=== PATIENT | male | born 1960 | race Caucasian/White ===

== ENCOUNTER 2019-03-07 03:30 | Emergency (ER) | payer OTHER, SELFPAY ==
[2019-03-07 03:32] VITALS: BP 151/100; PULSE 69; RESP 16; TEMP 36.4; O2SAT 100; BMI 23.1
--- NOTE | 2019-03-07 03:40 | ED.CHESTPAIN ---
HPI - Chest Pain <Rand Escalona DO - Last Filed: 03/08/19 00:12> General Chief Complaint: Chest Pain Stated Complaint: States bout of Pericarditis Time Seen by Provider: 03/07/19 03:39 Source: patient Mode of arrival: ambulatory Limitations: no limitations History of Present Illness HPI narrative: Patient is a 58-year-old male with history of pericarditis presenting with chest pain. He states he got up this evening and then started noticing that he was having symptoms of his pericarditis which include chest pain and belching. He has had attacks of this multiple times in the past he has had workups including a stress test but in 2007. He says this feels exactly the same as it usually does. He typically caries ibuprofen with him however he could not find any so he came to the emergency department. It seems to be worse every time he takes a deep breath. Positioning is the same whether he is sitting up and leaning forward or lying down he says it is quite painful either way. Eaten denies any shortness of breath with exertion. He denies any nausea or diaphoresis. MD complaint: chest pain Onset (ago): minute(s) Duration: constant Onset: during rest Pain location: substernal Severity: severe Quality: sharp Pain radiation: none Exacerbating factors: inspiration and movement Related Data Previous Rx's Medication Instructions Recorded ketorolac 10 mg PO Q6H PRN #14 tab 03/07/19 Allergies Allergy/AdvReac Type Severity Reaction Status Date / Time No Known Drug Allergies Allergy Verified 03/07/19 04:05 Review of Systems <DO Jaswinder Sahni Last Filed: 03/08/19 00:12> Review of Systems GENERAL: Denies chills, fatigue, malaise, fever, sweats, travel HEENT: Denies sinus pain, ear pain, sore throat, difficulty swallowing, neck pain RESPIRATORY: Denies dyspnea, cough, wheezing, hemoptysis, sputum. CARDIOVASCULAR: See HPI GASTROINTESTINAL: Denies nausea, vomiting, abdominal pain, diarrhea, constipation, melena. : Denies dysuria, frequency, incontinence, hematuria, urinary retention, flank pain. MUSCULOSKELETAL: Denies weakness, joint pain, or bony pain SKIN: No rash, no erythema, no pruritus NEUROLOGIC: Denies weakness, dizziness, headache, numbness, change in speech, confusion PSYCHIATRIC: No concerning psychosocial issues. 12 point review of systems is negative except for those stated above and HPI PFSH <Rand Escalona DO - Last Filed: 03/08/19 00:12> Medical History Pericarditis (Acute) Social History Smoking Status: Never smoker Social History Smoking Status: Never smoker Exam <Rand Escalona DO - Last Filed: 03/08/19 00:12> Initial Vital Signs Initial Vital Signs: Vital Signs Temperature 97.5 F L 03/07/19 03:32 Pulse Rate 69 03/07/19 03:32 Respiratory Rate 16 03/07/19 03:32 Blood Pressure 151/100 H 03/07/19 03:32 Pulse Oximetry 100 03/07/19 03:32 GENERAL: Middle-aged male appears in pain and uncomfortable HEENT: Head atraumatic,EOMI, pupils reactive, face symmetric, moist mucous membranes CARDIOVASCULAR: Regular rate and rhythm without murmurs, rubs or gallops. RESPIRATORY: Breath sounds equal bilaterally, no wheezes rales or rhonchi. ABDOMEN: Soft, nontender. Normoactive bowel sounds all 4 quadrants. No guarding or rebound. EXTREMITIES: Normal range of motion, no clubbing or edema. Neurovascularly intact NEUROLOGICAL: Alert and oriented x4.Normal gait and speech. Cranial nerves II through XII grossly intact. SKIN: Warm, dry, no laceration, no petechiae, no rashes or lesions. <Tomi Romano DO - Last Filed: 03/07/19 08:02> Initial Vital Signs Initial Vital Signs: Vital Signs Temperature 97.5 F L 03/07/19 03:32 Pulse Rate 69 03/07/19 03:32 Respiratory Rate 16 03/07/19 03:32 Blood Pressure 151/100 H 03/07/19 03:32 Pulse Oximetry 100 03/07/19 03:32 Scores <Rand Escalona DO - Last Filed: 03/08/19 00:12> HEART Score Heart Score history: Slightly Suspicious Heart Score EKG: Normal Heart Score Age: 45-64 years old Heart Score risk factors: No known risk factors Heart Score troponin: < or = to normal limit Heart Score Total: 1 Course <Rand Escalona DO - Last Filed: 03/08/19 00:12> Orders Ordered: Discontinued Medications Ketorolac Tromethamine (Toradol) 30 mg IV NOW ONE Stop: 03/07/19 03:56 Last Admin: 03/07/19 04:00 Dose: 30 mg Vital Signs - 8 hr 03/07/19 03:32 03/07/19 04:18 03/07/19 06:39 Temperature 97.5 F L Pulse Rate 69 62 68 Respiratory Rate 16 19 16 Blood Pressure 151/100 H Blood Pressure [Right Arm] 132/93 H 126/71 Pulse Oximetry 100 98 97 03/07/19 07:06 Temperature Pulse Rate 71 Respiratory Rate 19 Blood Pressure Blood Pressure [Right Arm] 128/75 Pulse Oximetry 97 <Tomi Romano DO - Last Filed: 03/07/19 08:02> Orders Ordered: Discontinued Medications Ketorolac Tromethamine (Toradol) 30 mg IV NOW ONE Stop: 03/07/19 03:56 Last Admin: 03/07/19 04:00 Dose: 30 mg Vital Signs - 8 hr 03/07/19 03:32 03/07/19 04:18 03/07/19 06:39 Temperature 97.5 F L Pulse Rate 69 62 68 Respiratory Rate 16 19 16 Blood Pressure 151/100 H Blood Pressure [Right Arm] 132/93 H 126/71 Pulse Oximetry 100 98 97 03/07/19 07:06 Temperature Pulse Rate 71 Respiratory Rate 19 Blood Pressure Blood Pressure [Right Arm] 128/75 Pulse Oximetry 97 MDM - Chest Pain <DO Jaswinder Sahni Last Filed: 03/08/19 00:12> Lab Data Attestation: I reviewed the patient's lab results. Result diagrams: 03/07/19 03:45 03/07/19 03:45 Lab Results 03/07/19 03/07/19 03/07/19 Range/Units 03:45 03:45 03:45 WBC 6.9 (4.5-11.0) X10^3/uL RBC 4.48 L (4.5-5.9) X10^6/uL Hgb 14.0 (13.5-17.5) g/dL Hct 41.8 (41-53) % MCV 93.3 (80-100) fL MCH 31.3 (26-34) PG MCHC 33.6 (30-36) % RDW 13.3 (11.6-14.8) % Plt Count 195 (150-400) X10^3/uL Neut % (Auto) 64.4 (50-75) % Lymph % (Auto) 20.0 L (25-40) % [place] % (Auto) 10.2 (3-14) % Eos % (Auto) 4.4 H (2-4) % Baso % (Auto) 1.0 (0-2) % Neut # (Auto) 4400 (2715-9089) /uL Lymph # (Auto) 1400 (2950-0652) /uL [place] # (Auto) 700 (0-900) /uL Eos # (Auto) 300 (0-450) /uL Baso # (Auto) 100 (0-100) /uL PT 10.2 (10.1-12.7) SECONDS INR 0.9 (0.9-1.3) APTT 35 (26.4-36.2) SECONDS Sodium 144 (137-145) mmol/L Potassium 3.9 (3.4-5.1) mmol/L Chloride 105 (98-107) mmol/L Carbon Dioxide 29 (22-32) mmol/L BUN 19 (9-20) mg/dL Creatinine 0.80 (0.66-1.25) mg/dL Estimated GFR > 60.0 (>60) mL/min BUN/Creatinine Ratio 23.8 H (6-22) Glucose 84 (70-100) mg/dL Calcium 9.8 (8.4-10.2) mg/dL Total Bilirubin 0.2 (0.2-1.3) mg/dL AST 33 (17-59) IU/L ALT 21 (21-72) IU/L Alkaline Phosphatase 98 (38-126) U/L Total Creatine Kinase 98 (55-170) U/L CK-MB (CK-2) TNP CK-MB (CK-2) Rel Index TNP Troponin I < 0.012 (0.01-0.034) ng/mL B-Natriuretic Peptide (<100) Total Protein 8.0 (6.3-8.2) g/dL Albumin 4.5 (3.5-5.0) g/dL Globulin 3.5 (1.7-4.1) g/dL Albumin/Globulin Ratio 1.3 (1.0-2.8) Lipase 114 (23-300) U/L 03/07/19 03/07/19 Range/Units 03:45 06:49 WBC (4.5-11.0) X10^3/uL RBC (4.5-5.9) X10^6/uL Hgb (13.5-17.5) g/dL Hct (41-53) % MCV (80-100) fL MCH (26-34) PG MCHC (30-36) % RDW (11.6-14.8) % Plt Count (150-400) X10^3/uL Neut % (Auto) (50-75) % Lymph % (Auto) (25-40) % [place] % (Auto) (3-14) % Eos % (Auto) (2-4) % Baso % (Auto) (0-2) % Neut # (Auto) (2122-8606) /uL Lymph # (Auto) (9805-6213) /uL [place] # (Auto) (0-900) /uL Eos # (Auto) (0-450) /uL Baso # (Auto) (0-100) /uL PT (10.1-12.7) SECONDS INR (0.9-1.3) APTT (26.4-36.2) SECONDS Sodium (137-145) mmol/L Potassium (3.4-5.1) mmol/L Chloride (98-107) mmol/L Carbon Dioxide (22-32) mmol/L BUN (9-20) mg/dL Creatinine (0.66-1.25) mg/dL Estimated GFR (>60) mL/min BUN/Creatinine Ratio (6-22) Glucose (70-100) mg/dL Calcium (8.4-10.2) mg/dL Total Bilirubin (0.2-1.3) mg/dL AST (17-59) IU/L ALT (21-72) IU/L Alkaline Phosphatase (38-126) U/L Total Creatine Kinase (55-170) U/L CK-MB (CK-2) CK-MB (CK-2) Rel Index Troponin I < 0.012 (0.01-0.034) ng/mL B-Natriuretic Peptide < 100 (<100) Total Protein (6.3-8.2) g/dL Albumin (3.5-5.0) g/dL Globulin (1.7-4.1) g/dL Albumin/Globulin Ratio (1.0-2.8) Lipase (23-300) U/L Imaging Data Chest x-ray: Attestation: I personally reviewed and interpreted this imaging study as follows: My impression: No acute cardiopulmonary process ECG Data Attestation: I personally reviewed and interpreted this ECG as follows: Prior ECG tracings: not available for review Interpretation: EKG 1.: Normal sinus rhythm rate 62 year interval 142 QRS 105 no P or depression benign early repolarization noted in inferior leads and V3 through V6. No priors to compare EKG 2. SINUS RHYTHM RATE 64 NO CHANGES FROM PRIOR MDM Narrative Medical decision making narrative: Bedside ultrasound done by myself does not show any pericardial effusion. Patient's pain significantly improved after Toradol. Will repeat a troponin. Patient is low risk for coronary artery disease. However persistent recurrent pericarditis is concerning. Patient signed out to Dr. Romano. <Tomi Romano, DO - Last Filed: 03/07/19 08:02> Lab Data Lab Results 03/07/19 03/07/19 03/07/19 Range/Units 03:45 03:45 03:45 WBC 6.9 (4.5-11.0) X10^3/uL RBC 4.48 L (4.5-5.9) X10^6/uL Hgb 14.0 (13.5-17.5) g/dL Hct 41.8 (41-53) % MCV 93.3 (80-100) fL MCH 31.3 (26-34) PG MCHC 33.6 (30-36) % RDW 13.3 (11.6-14.8) % Plt Count 195 (150-400) X10^3/uL Neut % (Auto) 64.4 (50-75) % Lymph % (Auto) 20.0 L (25-40) % [place] % (Auto) 10.2 (3-14) % Eos % (Auto) 4.4 H (2-4) % Baso % (Auto) 1.0 (0-2) % Neut # (Auto) 4400 (2254-5644) /uL Lymph # (Auto) 1400 (0884-5850) /uL [place] # (Auto) 700 (0-900) /uL Eos # (Auto) 300 (0-450) /uL Baso # (Auto) 100 (0-100) /uL PT 10.2 (10.1-12.7) SECONDS INR 0.9 (0.9-1.3) APTT 35 (26.4-36.2) SECONDS Sodium 144 (137-145) mmol/L Potassium 3.9 (3.4-5.1) mmol/L Chloride 105 (98-107) mmol/L Carbon Dioxide 29 (22-32) mmol/L BUN 19 (9-20) mg/dL Creatinine 0.80 (0.66-1.25) mg/dL Estimated GFR > 60.0 (>60) mL/min BUN/Creatinine Ratio 23.8 H (6-22) Glucose 84 (70-100) mg/dL Calcium 9.8 (8.4-10.2) mg/dL Total Bilirubin 0.2 (0.2-1.3) mg/dL AST 33 (17-59) IU/L ALT 21 (21-72) IU/L Alkaline Phosphatase 98 (38-126) U/L Total Creatine Kinase 98 (55-170) U/L CK-MB (CK-2) TNP CK-MB (CK-2) Rel Index TNP Troponin I < 0.012 (0.01-0.034) ng/mL B-Natriuretic Peptide (<100) Total Protein 8.0 (6.3-8.2) g/dL Albumin 4.5 (3.5-5.0) g/dL Globulin 3.5 (1.7-4.1) g/dL Albumin/Globulin Ratio 1.3 (1.0-2.8) Lipase 114 (23-300) U/L 03/07/19 03/07/19 Range/Units 03:45 06:49 WBC (4.5-11.0) X10^3/uL RBC (4.5-5.9) X10^6/uL Hgb (13.5-17.5) g/dL Hct (41-53) % MCV (80-100) fL MCH (26-34) PG MCHC (30-36) % RDW (11.6-14.8) % Plt Count (150-400) X10^3/uL Neut % (Auto) (50-75) % Lymph % (Auto) (25-40) % [place] % (Auto) (3-14) % Eos % (Auto) (2-4) % Baso % (Auto) (0-2) % Neut # (Auto) (6662-8530) /uL Lymph # (Auto) (8012-9375) /uL [place] # (Auto) (0-900) /uL Eos # (Auto) (0-450) /uL Baso # (Auto) (0-100) /uL PT (10.1-12.7) SECONDS INR (0.9-1.3) APTT (26.4-36.2) SECONDS Sodium (137-145) mmol/L Potassium (3.4-5.1) mmol/L Chloride (98-107) mmol/L Carbon Dioxide (22-32) mmol/L BUN (9-20) mg/dL Creatinine (0.66-1.25) mg/dL Estimated GFR (>60) mL/min BUN/Creatinine Ratio (6-22) Glucose (70-100) mg/dL Calcium (8.4-10.2) mg/dL Total Bilirubin (0.2-1.3) mg/dL AST (17-59) IU/L ALT (21-72) IU/L Alkaline Phosphatase (38-126) U/L Total Creatine Kinase (55-170) U/L CK-MB (CK-2) CK-MB (CK-2) Rel Index Troponin I < 0.012 (0.01-0.034) ng/mL B-Natriuretic Peptide < 100 (<100) Total Protein (6.3-8.2) g/dL Albumin (3.5-5.0) g/dL Globulin (1.7-4.1) g/dL Albumin/Globulin Ratio (1.0-2.8) Lipase (23-300) U/L [facility] Narrative Medical decision making narrative: 58-year-old male presents with sharp and stabbing, reproducible anterior chest pain which is worse with deep breath and movement. He states this has happened a few times in the past and he has been diagnosed with pericarditis at least once. He states that often occurs when he lifts heavy objects which he was doing yesterday, pulling crab [employer]. He denies classic ischemic complaints such as pressure, radiation, worsening with exertion, diaphoresis, nausea or vomiting. Troponin times to and multiple EKGs are nonischemic. Patient and given return precautions and have had their questions answered to their apparent satisfaction Discharge Plan Departure Patient Disposition: Home Clinical Impression: Atypical chest pain Pericarditis Qualifiers: Pericarditis type: unspecified type Chronicity: acute Qualified Code(s): I30.9 - Acute pericarditis, unspecified Discharge Date/Time: 03/07/19 08:07 Interventions: ED Discharge Assessment Last Done: 03/07/19 08:07 Instructions: DI for Atypical Chest Pain Activity Restrictions/Additional Instructions: *You have been diagnosed with [atypical chest pain, likely pericarditis. Your troponin (a chemical release by your heart in the event it is damaged) was normal when measured today twice, your EKGs are normal and all in all your visit is very reassuring. ] *What to do: *Take medications as directed *Follow up with your primary care provider in 2-3 days, call for an appointment. Let them know you were seen in the Emergency Department and that we ask that you be seen in follow up *Return to ER if you should have any new, worsening or concerning symptoms, such as [worsening chest pain, shortness of breath, sweating, vomiting or other bothersome symptoms] Prescriptions: New ketorolac 10 mg tablet 10 mg PO Q6H PRN (Reason: pain) Qty: 14 RF: 0 Referrals: [facility] [Outside]
--- NOTE | 2019-03-07 03:47 | DI.RAD.S_ITS ---
PROCEDURE: XR CHEST 1V INDICATIONS: chest pain TECHNIQUE: One view of the chest was acquired. COMPARISON: None. FINDINGS: Surgical changes and devices: None. Lungs and pleura: Lungs are clear. No pleural effusions or pneumothorax. Mediastinum: Mediastinal contours appear normal. Heart size is normal. Bones and chest wall: No suspicious bony lesions. Overlying soft tissues appear unremarkable. IMPRESSION: Normal for age, source of current chest pain symptoms is not seen. Dictated by: Abraham Verdin M.D. on 03/07/2019 at 8:28 Approved by: Abraham Verdin M.D. on 03/07/2019 at 8:28
--- NOTE | 2019-03-07 03:55 | ED_ITS ---
HPI - Chest Pain <Rand Escalona DO - Last Filed: 03/08/19 00:12> General Chief Complaint: Chest Pain Stated Complaint: States bout of Pericarditis Time Seen by Provider: 03/07/19 03:39 Source: patient Mode of arrival: ambulatory Limitations: no limitations History of Present Illness HPI narrative: Patient is a 58-year-old male with history of pericarditis presenting with chest pain. He states he got up this evening and then started noticing that he was having symptoms of his pericarditis which include chest pain and belching. He has had attacks of this multiple times in the past he has had workups including a stress test but in 2007. He says this feels exactly the same as it usually does. He typically caries ibuprofen with him however he could not find any so he came to the emergency department. It seems to be worse every time he takes a deep breath. Positioning is the same whether he is sitting up and leaning forward or lying down he says it is quite painful either way. Eaten denies any shortness of breath with exertion. He denies any nausea or diaphoresis. MD complaint: chest pain Onset (ago): minute(s) Duration: constant Onset: during rest Pain location: substernal Severity: severe Quality: sharp Pain radiation: none Exacerbating factors: inspiration and movement Related Data Previous Rx's Medication Instructions Recorded ketorolac 10 mg PO Q6H PRN #14 tab 03/07/19 Allergies Allergy/AdvReac Type Severity Reaction Status Date / Time No Known Drug Allergies Allergy Verified 03/07/19 04:05 Review of Systems <DO Jaswinder Sahni Last Filed: 03/08/19 00:12> Review of Systems GENERAL: Denies chills, fatigue, malaise, fever, sweats, travel HEENT: Denies sinus pain, ear pain, sore throat, difficulty swallowing, neck pain RESPIRATORY: Denies dyspnea, cough, wheezing, hemoptysis, sputum. CARDIOVASCULAR: See HPI GASTROINTESTINAL: Denies nausea, vomiting, abdominal pain, diarrhea, constipation, melena. : Denies dysuria, frequency, incontinence, hematuria, urinary retention, flank pain. MUSCULOSKELETAL: Denies weakness, joint pain, or bony pain SKIN: No rash, no erythema, no pruritus NEUROLOGIC: Denies weakness, dizziness, headache, numbness, change in speech, confusion PSYCHIATRIC: No concerning psychosocial issues. 12 point review of systems is negative except for those stated above and HPI PFSH <Rand Escalona DO - Last Filed: 03/08/19 00:12> Medical History Pericarditis (Acute) Social History Smoking Status: Never smoker Social History Smoking Status: Never smoker Exam <Rand Escalona DO - Last Filed: 03/08/19 00:12> Initial Vital Signs Initial Vital Signs: Vital Signs Temperature 97.5 F L 03/07/19 03:32 Pulse Rate 69 03/07/19 03:32 Respiratory Rate 16 03/07/19 03:32 Blood Pressure 151/100 H 03/07/19 03:32 Pulse Oximetry 100 03/07/19 03:32 GENERAL: Middle-aged male appears in pain and uncomfortable HEENT: Head atraumatic,EOMI, pupils reactive, face symmetric, moist mucous membranes CARDIOVASCULAR: Regular rate and rhythm without murmurs, rubs or gallops. RESPIRATORY: Breath sounds equal bilaterally, no wheezes rales or rhonchi. ABDOMEN: Soft, nontender. Normoactive bowel sounds all 4 quadrants. No g uarding or rebound. EXTREMITIES: Normal range of motion, no clubbing or edema. Neurovascularly inta ct NEUROLOGICAL: Alert and oriented x4.Normal gait and speech. Cranial nerves II through XII grossly intact. SKIN: Warm, dry, no laceration, no petechiae, no rashes or lesions. <Tomi Romano DO - Last Filed: 03/07/19 08:02> Initial Vital Signs Initial Vital Signs: Vital Signs Temperature 97.5 F L 03/07/19 03:32 Pulse Rate 69 03/07/19 03:32 Respiratory Rate 16 03/07/19 03:32 Blood Pressure 151/100 H 03/07/19 03:32 Pulse Oximetry 100 03/07/19 03:32 Scores <Rand Escalona DO - Last Filed: 03/08/19 00:12> HEART Score Heart Score history: Slightly Suspicious Heart Score EKG: Normal Heart Score Age: 45-64 years old Heart Score risk factors: No known risk factors Heart Score troponin: < or = to normal limit Heart Score Total: 1 Course <DO Jaswinder Sahni Last Filed: 03/08/19 00:12> Orders Ordered: Discontinued Medications Ketorolac Tromethamine (Toradol) 30 mg IV NOW ONE Stop: 03/07/19 03:56 Last Admin: 03/07/19 04:00 Dose: 30 mg Vital Signs - 8 hr 03/07/19 03:32 03/07/19 04:18 03/07/19 06:39 Temperature 97.5 F L Pulse Rate 69 62 68 Respiratory Rate 16 19 16 Blood Pressure 151/100 H Blood Pressure [Right Arm] 132/93 H 126/71 Pulse Oximetry 100 98 97 03/07/19 07:06 Temperature Pulse Rate 71 Respiratory Rate 19 Blood Pressure Blood Pressure [Right Arm] 128/75 Pulse Oximetry 97 <Tomi Romano DO - Last Filed: 03/07/19 08:02> Orders Ordered: Discontinued Medications Ketorolac Tromethamine (Toradol) 30 mg IV NOW ONE Stop: 03/07/19 03:56 Last Admin: 03/07/19 04:00 Dose: 30 mg Vital Signs - 8 hr 03/07/19 03:32 03/07/19 04:18 03/07/19 06:39 Temperature 97.5 F L Pulse Rate 69 62 68 Respiratory Rate 16 19 16 Blood Pressure 151/100 H Blood Pressure [Right Arm] 132/93 H 126/71 Pulse Oximetry 100 98 97 03/07/19 07:06 Temperature Pulse Rate 71 Respiratory Rate 19 Blood Pressure Blood Pressure [Right Arm] 128/75 Pulse Oximetry 97 MDM - Chest Pain <DO Jaswinder Sahni Last Filed: 03/08/19 00:12> Lab Data Attestation: I reviewed the patient's lab results. Result diagrams: 03/07/19 03:45 03/07/19 03:45 Lab Results 03/07/19 03/07/19 03/07/19 Range/Units 03:45 03:45 03:45 WBC 6.9 (4.5-11.0) X10^3/uL RBC 4.48 L (4.5-5.9) X10^6/uL Hgb 14.0 (13.5-17.5) g/dL Hct 41.8 (41-53) % MCV 93.3 (80-100) fL MCH 31.3 (26-34) PG MCHC 33.6 (30-36) % RDW 13.3 (11.6-14.8) % Plt Count 195 (150-400) X10^3/uL Neut % (Auto) 64.4 (50-75) % Lymph % (Auto) 20.0 L (25-40) % Isabella % (Auto) 10.2 (3-14) % Eos % (Auto) 4.4 H (2-4) % Baso % (Auto) 1.0 (0-2) % Neut # (Auto) 4400 (6193-3167) /uL Lymph # (Auto) 1400 (4171-3735) /uL Isabella # (Auto) 700 (0-900) /uL Eos # (Auto) 300 (0-450) /uL Baso # (Auto) 100 (0-100) /uL PT 10.2 (10.1-12.7) SECONDS INR 0.9 (0.9-1.3) APTT 35 (26.4-36.2) SECONDS Sodium 144 (137-145) mmol/L Potassium 3.9 (3.4-5.1) mmol/L Chloride 105 (98-107) mmol/L Carbon Dioxide 29 (22-32) mmol/L BUN 19 (9-20) mg/dL Creatinine 0.80 (0.66-1.25) mg/dL Estimated GFR > 60.0 (>60) mL/min BUN/Creatinine Ratio 23.8 H (6-22) Glucose 84 (70-100) mg/dL Calcium 9.8 (8.4-10.2) mg/dL Total Bilirubin 0.2 (0.2-1.3) mg/dL AST 33 (17-59) IU/L ALT 21 (21-72) IU/L Alkaline Phosphatase 98 (38-126) U/L Total Creatine Kinase 98 (55-170) U/L CK-MB (CK-2) TNP CK-MB (CK-2) Rel Index TNP Troponin I < 0.012 (0.01-0.034) ng/mL B-Natriuretic Peptide (<100) Total Protein 8.0 (6.3-8.2) g/dL Albumin 4.5 (3.5-5.0) g/dL Globulin 3.5 (1.7-4.1) g/dL Albumin/Globulin Ratio 1.3 (1.0-2.8) Lipase 114 (23-300) U/L 03/07/19 03/07/19 Range/Units 03:45 06:49 WBC (4.5-11.0) X10^3/uL RBC (4.5-5.9) X10^6/uL Hgb (13.5-17.5) g/dL Hct (41-53) % MCV (80-100) fL MCH (26-34) PG MCHC (30-36) % RDW (11.6-14.8) % Plt Count (150-400) X10^3/uL Neut % (Auto) (50-75) % Lymph % (Auto) (25-40) % Isabella % (Auto) (3-14) % Eos % (Auto) (2-4) % Baso % (Auto) (0-2) % Neut # (Auto) (4023-3587) /uL Lymph # (Auto) (5192-7984) /uL Isabella # (Auto) (0-900) /uL Eos # (Auto) (0-450) /uL Baso # (Auto) (0-100) /uL PT (10.1-12.7) SECONDS INR (0.9-1.3) APTT (26.4-36.2) SECONDS Sodium (137-145) mmol/L Potassium (3.4-5.1) mmol/L Chloride (98-107) mmol/L Carbon Dioxide (22-32) mmol/L BUN (9-20) mg/dL Creatinine (0.66-1.25) mg/dL Estimated GFR (>60) mL/min BUN/Creatinine Ratio (6-22) Glucose (70-100) mg/dL Calcium (8.4-10.2) mg/dL Total Bilirubin (0.2-1.3) mg/dL AST (17-59) IU/L ALT (21-72) IU/L Alkaline Phosphatase (38-126) U/L Total Creatine Kinase (55-170) U/L CK-MB (CK-2) CK-MB (CK-2) Rel Index Troponin I < 0.012 (0.01-0.034) ng/mL B-Natriuretic Peptide < 100 (<100) Total Protein (6.3-8.2) g/dL Albumin (3.5-5.0) g/dL Globulin (1.7-4.1) g/dL Albumin/Globulin Ratio (1.0-2.8) Lipase (23-300) U/L Imaging Data Chest x-ray: Attestation: I personally reviewed and interpreted this imaging study as follows: My impression: No acute cardiopulmonary process ECG Data Attestation: I personally reviewed and interpreted this ECG as follows: Prior ECG tracings: not available for review Interpretation: EKG 1.: Normal sinus rhythm rate 62 year interval 142 QRS 105 no P or depression benign early repolarization noted in inferior leads and V3 through V6. No priors to compare EKG 2. SINUS RHYTHM RATE 64 NO CHANGES FROM PRIOR MDM Narrative Medical decision making narrative: Bedside ultrasound done by myself does not show any pericardial effusion. Patient's pain significantly improved after Toradol. Will repeat a troponin. Patient is low risk for coronary artery disease. However persistent recurrent pericarditis is concerning. Patient signed out to Dr. Romano. <Tomi Romano, DO - Last Filed: 03/07/19 08:02> Lab Data Lab Results 03/07/19 03/07/19 03/07/19 Range/Units 03:45 03:45 03:45 WBC 6.9 (4.5-11.0) X10^3/uL RBC 4.48 L (4.5-5.9) X10^6/uL Hgb 14.0 (13.5-17.5) g/dL Hct 41.8 (41-53) % MCV 93.3 (80-100) fL MCH 31.3 (26-34) PG MCHC 33.6 (30-36) % RDW 13.3 (11.6-14.8) % Plt Count 195 (150-400) X10^3/uL Neut % (Auto) 64.4 (50-75) % Lymph % (Auto) 20.0 L (25-40) % Isabella % (Auto) 10.2 (3-14) % Eos % (Auto) 4.4 H (2-4) % Baso % (Auto) 1.0 (0-2) % Neut # (Auto) 4400 (9758-5002) /uL Lymph # (Auto) 1400 (5046-0698) /uL Isabella # (Auto) 700 (0-900) /uL Eos # (Auto) 300 (0-450) /uL Baso # (Auto) 100 (0-100) /uL PT 10.2 (10.1-12.7) SECONDS INR 0.9 (0.9-1.3) APTT 35 (26.4-36.2) SECONDS Sodium 144 (137-145) mmol/L Potassium 3.9 (3.4-5.1) mmol/L Chloride 105 (98-107) mmol/L Carbon Dioxide 29 (22-32) mmol/L BUN 19 (9-20) mg/dL Creatinine 0.80 (0.66-1.25) mg/dL Estimated GFR > 60.0 (>60) mL/min BUN/Creatinine Ratio 23.8 H (6-22) Glucose 84 (70-100) mg/dL Calcium 9.8 (8.4-10.2) mg/dL Total Bilirubin 0.2 (0.2-1.3) mg/dL AST 33 (17-59) IU/L ALT 21 (21-72) IU/L Alkaline Phosphatase 98 (38-126) U/L Total Creatine Kinase 98 (55-170) U/L CK-MB (CK-2) TNP CK-MB (CK-2) Rel Index TNP Troponin I < 0.012 (0.01-0.034) ng/mL B-Natriuretic Peptide (<100) Total Protein 8.0 (6.3-8.2) g/dL Albumin 4.5 (3.5-5.0) g/dL Globulin 3.5 (1.7-4.1) g/dL Albumin/Globulin Ratio 1.3 (1.0-2.8) Lipase 114 (23-300) U/L 03/07/19 03/07/19 Range/Units 03:45 06:49 WBC (4.5-11.0) X10^3/uL RBC (4.5-5.9) X10^6/uL Hgb (13.5-17.5) g/dL Hct (41-53) % MCV (80-100) fL MCH (26-34) PG MCHC (30-36) % RDW (11.6-14.8) % Plt Count (150-400) X10^3/uL Neut % (Auto) (50-75) % Lymph % (Auto) (25-40) % Isabella % (Auto) (3-14) % Eos % (Auto) (2-4) % Baso % (Auto) (0-2) % Neut # (Auto) (0336-5082) /uL Lymph # (Auto) (0115-0496) /uL Isabella # (Auto) (0-900) /uL Eos # (Auto) (0-450) /uL Baso # (Auto) (0-100) /uL PT (10.1-12.7) SECONDS INR (0.9-1.3) APTT (26.4-36.2) SECONDS Sodium (137-145) mmol/L Potassium (3.4-5.1) mmol/L Chloride (98-107) mmol/L Carbon Dioxide (22-32) mmol/L BUN (9-20) mg/dL Creatinine (0.66-1.25) mg/dL Estimated GFR (>60) mL/min BUN/Creatinine Ratio (6-22) Glucose (70-100) mg/dL Calcium (8.4-10.2) mg/dL Total Bilirubin (0.2-1.3) mg/dL AST (17-59) IU/L ALT (21-72) IU/L Alkaline Phosphatase (38-126) U/L Total Creatine Kinase (55-170) U/L CK-MB (CK-2) CK-MB (CK-2) Rel Index Troponin I < 0.012 (0.01-0.034) ng/mL B-Natriuretic Peptide < 100 (<100) Total Protein (6.3-8.2) g/dL Albumin (3.5-5.0) g/dL Globulin (1.7-4.1) g/dL Albumin/Globulin Ratio (1.0-2.8) Lipase (23-300) U/L MDM Narrative Medical decision making narrative: 58-year-old male presents with sharp and stabbing, reproducible anterior chest pain which is worse with deep breath and movement. He states this has happened a few times in the past and he has been diagnosed with pericarditis at least once. He states that often occurs when he lifts heavy objects which he was doing yesterday, pulling crab [employer]. He denies classic ischemic complaints such as pressure, radiation, worsening with exertion, diaphoresis, nausea or vomiting. Troponin times to and multiple EKGs are nonischemic. Patient and given return precautions and have had their questions answered to their apparent satisfaction Discharge Plan Departure Patient Disposition: Home Clinical Impression: Atypical chest pain Pericarditis Qualifiers: Pericarditis type: unspecified type Chronicity: acute Qualified Code(s): I30.9 - Acute pericarditis, unspecified Discharge Date/Time: 03/07/19 08:07 Interventions: ED Discharge Assessment Last Done: 03/07/19 08:07 Instructions: DI for Atypical Chest Pain Activity Restrictions/Additional Instructions: *You have been diagnosed with [atypical chest pain, likely pericarditis. Your troponin (a chemical release by your heart in the event it is damaged) was normal when measured today twice, your EKGs are normal and all in all your visit is very reassuring. ] *What to do: *Take medications as directed *Follow up with your primary care provider in 2-3 days, call for an appointment. Let them know you were seen in the Emergency Department and that we ask that you be seen in follow up *Return to ER if you should have any new, worsening or concerning symptoms, such as [worsening chest pain, shortness of breath, sweating, vomiting or other bothersome symptoms] Prescriptions: New ketorolac 10 mg tablet 10 mg PO Q6H PRN (Reason: pain) Qty: 14 RF: 0 Referrals: Merged With [facility] [Outside]
[2019-03-07 04:00] LABS: Add Manual Diff / Slide Review NO; Basophils Absolute Auto 100 /uL (0-100); Eosinophils Absolute Auto 300 /uL (0-450); Eosinophils Percent Auto 4.4 % (2-4); Hematocrit 41.8 % (41-53); Lymphocytes Absolute Auto 1400 /uL (1100-4500); Mean Corpuscular HGB Conc 33.6 % (30-36); Mean Corpuscular Hemoglobin 31.3 PG (26-34); Mean Corpuscular Volume 93.3 fL (80-100); Monocytes Absolute Auto 700 /uL (0-900); Monocytes Percent Auto 10.2 % (3-14); Neutrophils Absolute Auto 4400 /uL (1500-7000); Neutrophils Percent Auto 64.4 % (50-75); Platelet Count 195 X10^3/uL (150-400); Red Blood Cell Count 4.48 X10^6/uL (4.5-5.9); Red Cell Distribution Width 13.3 % (11.6-14.8); White Blood Cell Count 6.9 X10^3/uL (4.5-11.0)
[2019-03-07] MEDS: KETOROLAC 60 MG/2 ML VIAL 30 MG IV (04:00)
[2019-03-07 04:05] LABS: INR 0.9 (0.9-1.3); Prothrombin Time 10.2 SECONDS (10.1-12.7)
[2019-03-07 04:07] LABS: PTT Partial Thromboplastin Tim 35 SECONDS (26.4-36.2)
[2019-03-07 04:09] LABS: Alanine Aminotransferase 21 IU/L (21-72); Albumin 4.5 g/dL (3.5-5.0); Albumin Globulin Ratio 1.3 (1.0-2.8); Alkaline Phosphatase 98 U/L (38-126); Aspartate Aminotransferase 33 IU/L (17-59); BUN Creatinine Ratio 23.8 (6-22); Bilirubin Total 0.2 mg/dL (0.2-1.3); Blood Urea Nitrogen 19 mg/dL (9-20); Calcium 9.8 mg/dL (8.4-10.2); Carbon Dioxide 29 mmol/L (22-32); Chloride 105 mmol/L (98-107); Creatine Kinase 98 U/L (55-170); Estimated Glomerular Filt Rate > 60.0 mL/min (>60); Globulin 3.5 g/dL (1.7-4.1); Glucose 84 mg/dL (70-100); HEMOLYSIS < 15 (0-50); Lipase 114 U/L (23-300); Potassium 3.9 mmol/L (3.4-5.1); Sodium 144 mmol/L (137-145)
[2019-03-07 04:18] VITALS: BP 132/93; PULSE 62; RESP 19; O2SAT 98
[2019-03-07 04:20] LABS: Troponin I < 0.012 ng/mL (0.01-0.034)
[2019-03-07 04:29] LABS: B Type Natriuretic Peptide < 100 (<100)
[2019-03-07 06:39] VITALS: BP 126/71; PULSE 68; RESP 16; O2SAT 97
[2019-03-07 07:06] VITALS: BP 128/75; PULSE 71; RESP 19; O2SAT 97
[2019-03-07 07:17] LABS: Troponin I < 0.012 ng/mL (0.01-0.034)
[2019-03-07 08:07] VITALS: BP 129/76; PULSE 68; RESP 16; O2SAT 97
== END 2019-03-07 08:07 | disposition home or self-care (01) ==
PROVIDERS: Emergency Medicine; Emergency Provider Emergency Medicine
DX: R07.89 Other chest pain (principal); I30.9 Acute pericarditis, unspecified
CPT/HCPCS: 36415; 36591; 71045; 80053; 82550; 83690; 83880; 84484; 85025; 85610; 85730; 93005; 96374; 99283; 99285; J1885